=== PATIENT | male | born 1935 | race Caucasian/White ===

== ENCOUNTER → 2017-12-14 | Outpatient (CLI) | payer MEDICARE ==
[2015-07-23 14:44] VITALS: BMI 35.3
[~2017-12-14] MED LIST: BENA1TAB58 PO; BENA40TA51 PO; CALC1TAB32 PO; CALC500T6 PO; CALCIUM PO; CEP500 PO; EZET10TA41 PO; FEN145 PO; FENO130C PO; FIN5 PO; FINA5TAB67 PO; HCTZ25 PO; LOVA40TA89 PO; MELO-205 PO; METO50TA19 PO; METR-160 PO; MULT-1335 PO; MULT-865 PO; NAP250 PO; ONDA4TAB9 PO; PER PO; PIRO-1 PO; PNEU0.5D3 IM; POLY17PO25 PO; PREG75CA60 PO; PREG75CA61 PO; TAM4 PO; TAMS0.4C25 PO
[2017-12-14 10:47] LABS: PLATELET COUNT, AUTOMATED 258 K/uL (150-450)
== END ==
LOC: LAB 10:30
PROVIDERS: ATTEND Family Medicine
DX: I10 Essential (primary) hypertension (principal)
CPT/HCPCS: 36415; 82040; 82247; 82310; 82374; 82435; 82565; 82947; 84075; 84132; 84155; 84295; 84450; 84460; 84520; 85025

== ENCOUNTER → 2018-08-08 | Outpatient (CLI) | payer MEDICARE ==
[2015-07-23 14:44] VITALS: BMI 35.3
[~2018-08-08] MED LIST changes: +FLU180SY11 IM; +RANI-318 PO
[2018-08-08 15:14] LABS: PLATELET COUNT, AUTOMATED 315 K/uL (150-450)
== END ==
LOC: LAB 14:24
PROVIDERS: ATTEND Family Medicine
DX: N18.9 Chronic kidney disease, unspecified (principal)
CPT/HCPCS: 36415; 82310; 82374; 82435; 82565; 82947; 84132; 84295; 84520; 85025

== ENCOUNTER → 2019-02-06 | Outpatient (CLI) | payer MEDICARE ==
[2015-07-23 14:44] VITALS: BMI 35.3
[~2019-02-06] MED LIST changes: -METR-160 PO; +METR500T15 PO
== END ==
LOC: LAB 14:25
PROVIDERS: ATTEND Family Medicine
DX: N18.9 Chronic kidney disease, unspecified (principal)
CPT/HCPCS: 36415; 82310; 82374; 82435; 82565; 82947; 84132; 84295; 84520; 88305